=== PATIENT | female | born 1990 | race African-American/Black ===

== ENCOUNTER 2020-06-17 12:47 | Inpatient (IN) ==
[~2020-06-17 12:47] MED LIST: Famotidine 20 MG/2 ML VIAL IVP PRN; Metoclopramide 10 MG/2 ML VIAL IVP PRN; Naloxone 0.4 MG/ML INJ IVP PRN
[2020-06-17] MEDS ORDERED: Ringers Solution, Lactated 1,000 ML ONE (13:24)
[2020-06-17 13:36] LABS: Basophils % 0.1 %; Eosinophils % 0.4 %; Hematocrit 39.7 % (35.3-44.9); Hemoglobin 12.4 g/dL (11.5-15.4); Immature Granulocytes % 0.3 % (0-4); Immature Platelets 6.8 % (1.1-6.1); Lymphocytes # 1.4 K/mcL (0.6-4.6); Lymphocytes % 20.1 %; Mean Corpuscular HGB Conc 31.2 g/dL (31.6-35.5); Mean Corpuscular Hemoglobin 27.6 pg (28.0-33.3); Mean Corpuscular Volume 88.4 fL (83.0-100.0); Mean Platelet Volume 10.9 fL (9.4-12.4); Monocytes # 0.6 K/mcL (0.0-1.3); Monocytes % 8.7 %; Neutrophils # 4.8 K/mcL (1.6-8.9); Platelet Count 184 K/mcL (140-400); Red Blood Count 4.49 M/mcL (3.82-4.97); Red Cell Distribution Width 13.6 % (11.5-14.5); Segmented Neutrophils % 70.4 %; White Blood Count 6.8 K/mcL (4.3-11.1)
[2020-06-17] MEDS: Ringers Solution, Lactated 1,000 ML IVC SCH ×2 (13:36→15:11)
[2020-06-17 13:39] LABS: Amphetamine Screen,Urine Negative ng/mL (Cutoff=1000); Barbiturate Screen,Urine Negative ng/mL (Cutoff=200); Benzodiazepines Screen,Urine Negative ng/mL (Cutoff=200); Cannabinoid Screen,Urine Negative ng/mL (Cutoff = 50); Cocaine Screen,Urine Negative ng/mL (Cutoff= 300); Opiate Screen,Urine Negative ng/mL (Cutoff=300); Phencyclidine Screen,Urine Negative ng/mL (Cutoff=25)
[2020-06-17] MEDS ORDERED: Epidural Premix (fent/bupiv) 110 ML EP ONE (13:49)
[2020-06-17] MEDS ORDERED: EPHEDrine 50 MG/ML VIAL IVP PRN (14:32)
[2020-06-17] MEDS ORDERED: Epidural Premix (fent/bupiv) 110 ML EP SCH (14:45)
[2020-06-17 15:19] LABS: Influenza A PCR Negative (Negative); Influenza B PCR Negative (Negative); Resp. Syncytial Virus PCR Negative (Negative)
[2020-06-17 15:20] LABS: SARS-CoV-2 by PCR (In House) Negative (Negative)
[2020-06-17] MEDS ORDERED: Ropivacaine/PF 0.2% 20 ML VIAL ONE (18:55)
[2020-06-17] MEDS ORDERED: *HR* FentaNYL (PF) 100 MCG/2 ML VIAL ONE (18:55)
[2020-06-17] MEDS ORDERED: Lidocaine 1% 20 ML MDV ONE (22:21)
[2020-06-17] MEDS ORDERED: 0.9 % Sodium Chloride 250 ML ONE (22:57)
[2020-06-17 23:03] LABS: Hematocrit 29.8 % (35.3-44.9); Mean Corpuscular HGB Conc 31.2 g/dL (31.6-35.5); Mean Corpuscular Hemoglobin 28.3 pg (28.0-33.3); Mean Corpuscular Volume 90.6 fL (83.0-100.0); Mean Platelet Volume 9.6 fL (9.4-12.4); Platelet Count 179 K/mcL (140-400); Red Blood Count 3.29 M/mcL (3.82-4.97); Red Cell Distribution Width 13.8 % (11.5-14.5); White Blood Count 8.1 K/mcL (4.3-11.1)
[2020-06-17 23:04] LABS: Hemoglobin 9.3 g/dL (11.5-15.4)
[2020-06-18] MEDS ORDERED: Measles/Mumps/Rubella Vacc 0.5 ML VIAL SQ PRN (01:18)
[2020-06-18] MEDS ORDERED: Benzocaine/Menthol 56 GM AEROSOL SPRAY TP PRN (01:18)
[2020-06-18] MEDS ORDERED: Lanolin 7 G OINT...G. TP PRN (01:18)
[2020-06-18] MEDS ORDERED: Oxytocin 20 units/ LR 1000 mL 20 UNIT/1,000 ML BAG IVC SCH (01:18)
[2020-06-18 04:23] LABS: Basophils % 0.1 %; Eosinophils % 0.2 %; Hematocrit 28.8 % (35.3-44.9); Hemoglobin 9.3 g/dL (11.5-15.4); Immature Granulocytes % 0.6 % (0-4); Lymphocytes % 4.8 %; Mean Corpuscular HGB Conc 32.3 g/dL (31.6-35.5); Mean Corpuscular Hemoglobin 28.9 pg (28.0-33.3); Mean Corpuscular Volume 89.4 fL (83.0-100.0); Mean Platelet Volume 10.2 fL (9.4-12.4); Monocytes # 1.7 K/mcL (0.0-1.3); Monocytes % 8.2 %; Platelet Count 149 K/mcL (140-400); Red Blood Count 3.22 M/mcL (3.82-4.97); Red Cell Distribution Width 13.9 % (11.5-14.5); Segmented Neutrophils % 86.1 %
[2020-06-18 04:24] LABS: White Blood Count 20.9 K/mcL (4.3-11.1)
[2020-06-18] MEDS: Ibuprofen 600 MG TABLET PO PRN ×3 (05:42→18:32)
[2020-06-18] MEDS: Prenatal Vit/FA 1 EACH TABLET PO SCH (08:06)
[2020-06-18] MEDS: Acetaminophen 325 MG TABLET PO PRN (08:06)
[2020-06-19] MEDS: Ibuprofen 600 MG TABLET PO PRN ×2 (05:34→11:47)
[2020-06-19 05:44] LABS: Basophils % 0.2 %; Eosinophils # 0.1 K/mcL (0.0-0.6); Eosinophils % 0.3 %; Hematocrit 23.4 % (35.3-44.9); Immature Granulocytes % 0.8 % (0-4); Lymphocytes % 11.4 %; Mean Corpuscular HGB Conc 32.9 g/dL (31.6-35.5); Mean Corpuscular Hemoglobin 29.2 pg (28.0-33.3); Mean Corpuscular Volume 88.6 fL (83.0-100.0); Mean Platelet Volume 10.3 fL (9.4-12.4); Monocytes # 1.3 K/mcL (0.0-1.3); Monocytes % 7.5 %; Neutrophils # 14.3 K/mcL (1.6-8.9); Platelet Count 146 K/mcL (140-400); Red Blood Count 2.64 M/mcL (3.82-4.97); Red Cell Distribution Width 14.1 % (11.5-14.5); Segmented Neutrophils % 79.8 %; White Blood Count 17.9 K/mcL (4.3-11.1)
[2020-06-19 05:45] LABS: Hemoglobin 7.7 g/dL (11.5-15.4)
[2020-06-19] MEDS: Acetaminophen 325 MG TABLET PO PRN (07:38)
[2020-06-19] MEDS: Prenatal Vit/FA 1 EACH TABLET PO SCH (07:38)
[2020-06-19] MEDS ORDERED: 0.9 % Sodium Chloride 1,000 ML IVC SCH (10:00)
[2020-06-19 13:27] VITALS: BP 104/69
== END 2020-06-19 14:29 | disposition home or self-care (01) ==
LOC: 1NENULAB → 1NENUOBS 06-18 01:16
PROVIDERS: ADMIT Student in an Organized Health Care Education/Training Program; ATTEND Student in an Organized Health Care Education/Training Program